=== PATIENT | female | born 1970 | race Hispanic/Latino ===

== ENCOUNTER 2019-10-02 18:58 | Emergency (ER) | payer BC ==
[2019-10-02 21:03] LABS: Clarity Hazy (Clear)
[2019-10-02 21:05] LABS: Glucose, Urine (Dipstick) Unable to Interpret mg/dL (Negative); Leukocyte Unable to Interpret (Negative); Nitrite Unable to Interpret (Negative); Protein, Urine (Dipstick) Unable to Interpret mg/dL (Neg-Trace)
[2019-10-02 21:06] LABS: Bilirubin Unable to Interpret (Negative); Urobilinogen UNABLE TO INTERPRET mg/dL (Less than 2)
[2019-10-02 21:07] LABS: Blood, Urine Unable to Interpret (Negative)
[2019-10-02 21:08] LABS: Bacteria/HPF Rare-Few HPF (None Seen); Squamous Epithelial 0-3 HPF (0-3); WBC/HPF 21-50 HPF (0-3)
== END 2019-10-02 21:53 | disposition home or self-care (01) ==
LOC: ERS 18:58
DX: N39.0 Urinary tract infection, site not specified (principal); R31.9 Hematuria, unspecified; E78.5 Hyperlipidemia, unspecified
CPT/HCPCS: 81003; 81015; 99283

== ENCOUNTER 2023-04-10 09:18 | Outpatient (CLI) | payer BC | END 2023-04-10 09:19 | disposition home or self-care (01) | LOC: BICMAMMO 09:18 | PROVIDERS: ATTEND Family Medicine | DX: Z12.31 Encounter for screening mammogram for malignant neoplasm of breast (principal) | CPT/HCPCS: 77063; 77067 ==